=== PATIENT | female | born 1995 | race Caucasian/White ===

== ENCOUNTER 2017-03-23 10:38 | Emergency (ER) | payer OTHER ==
[2017-03-23 10:50] VITALS: BP 102/75
--- NOTE | 2017-03-23 10:59 | UC ---
Throat Pain/Nasal Levi HPI - HPI Summary HPI Summary: SORE THROAT X 1 WEEK. NO FEVER, NO CHILLS, + NASAL CONGESTION , COUGH , PND - History of Current Complaint Chief Complaint: UCRespiratory Stated Complaint: COUGH, SORE THROAT Time Seen by Provider: 03/23/17 10:53 Hx Obtained From: Patient Hx Last Menstrual Period: End February 2017 Onset/Duration: Gradual Onset, Lasting Days - 7, Still Present Severity: Moderate Cough: Nonproductive Associated Signs & Symptoms: Positive: Nasal Discharge. Negative: Wheezing, Sinus Discomfort, Fever, Rash - Allergies/Home Medications Allergies/Adverse Reactions: Allergies Allergy/AdvReac Type Severity Reaction Status Date / Time No Known Allergies Allergy Verified 03/23/17 10:45 Home Medications: Home Medications NK [No Home Medications Reported] 03/23/17 [History Confirmed 03/23/17] PMH/Surg Hx/FS Hx/Imm Hx Previously Healthy: Yes - Surgical History Surgical History: Yes Surgery Procedure, Year, and Place: Appendix - Family History Known Family History: Negative: Diabetes - Social History Alcohol Use: None Substance Use Type: None Smoking Status (MU): Never Smoked Tobacco Household Exposure Type: Cigarettes - Immunization History Most Recent Influenza Vaccination: NONE Most Recent Tetanus Shot: UNK Most Recent Pneumonia Vaccination: N/A Review of Systems Constitutional: Negative Skin: Negative Eyes: Negative ENT: Sore Throat, Nasal Discharge Respiratory: Cough Cardiovascular: Negative Gastrointestinal: Negative Genitourinary: Negative All Other Systems Reviewed And Are Negative: Yes Physical Exam Triage Information Reviewed: Yes Appearance: Well-Appearing, No Pain Distress, Well-Nourished Vital Signs: Initial Vital Signs Temp 98.2 F 03/23/17 10:45 Pulse 80 03/23/17 10:45 Resp 16 03/23/17 10:45 BP 102/75 03/23/17 10:45 Pulse Ox 100 03/23/17 10:45 Vital Signs Reviewed: Yes Eyes: Positive: Conjunctiva Clear ENT: Positive: Normal ENT inspection, Hearing grossly normal, Pharynx normal, Nasal congestion, Nasal drainage, TMs normal. Negative: Pharyngeal erythema Neck: Positive: Supple, Nontender, No Lymphadenopathy Respiratory: Positive: Chest non-tender, Lungs clear, Normal breath sounds Cardiovascular: Positive: RRR, No Murmur, Pulses Normal Abdominal Exam: Normal Neurological Exam: Normal Skin Exam: Normal Throat Pain/Nasal Course/Dx - Differential Dx/Diagnosis Provider Diagnoses: VIRAL PHARYNGITIS Discharge - Discharge Plan Condition: Stable Disposition: HOME Patient Education Materials: Pharyngitis (ED) Referrals: Nahomi Burnette [Primary Care Provider] - If Needed Additional Instructions: VIRAL ILLNESS, NO NEED FOR ANTIBIOTICS CONT. WITH REST, INCREASE FLUID, TYLENOL NEEDED FOR PAIN OR FEVER FOLLOW UP NEEDED
== END 2017-03-23 11:05 | disposition home or self-care (01) ==
LOC: UCCORT 10:38
DX: J02.9 Acute pharyngitis, unspecified (principal)
CPT/HCPCS: 99211; G0463

== ENCOUNTER 2018-01-07 16:25 | Emergency (ER) | payer OTHER ==
[2018-01-07 17:32] VITALS: BP 116/90
--- NOTE | 2018-01-07 18:55 | UC ---
UC General HPI - HPI Summary HPI Summary: pt is c/o burning with urination and odor to urine for past 1-2 weeks. hx uti's and this is the same. no fever, abdominal pain or vaginal d/c. - History of Current Complaint Chief Complaint: UCGU Stated Complaint: URINARY Time Seen by Provider: 01/07/18 18:47 Hx Obtained From: Patient Hx Last Menstrual Period: 12/12/17 Onset/Duration: Gradual Onset Timing: Constant Pain Intensity: 10 Aggravating: nothing Alleviating: nothing Associated Signs & Symptoms: Negative: Abdominal Pain, Back Pain, Fever - Allergy/Home Medications Allergies/Adverse Reactions: Allergies Allergy/AdvReac Type Severity Reaction Status Date / Time No Known Allergies Allergy Verified 01/07/18 17:22 PMH/Surg Hx/FS Hx/Imm Hx - Additional Past Medical History Additional PMH: UTI's - Surgical History Surgical History: Yes Surgery Procedure, Year, and Place: Appendix - Family History Known Family History: Negative: Diabetes - Social History Alcohol Use: None Substance Use Type: None Smoking Status (MU): Never Smoked Tobacco Household Exposure Type: Cigarettes - Immunization History Most Recent Influenza Vaccination: NONE Most Recent Tetanus Shot: UNK Most Recent Pneumonia Vaccination: N/A Vaccination Up to Date: Yes Review of Systems Constitutional: Negative Skin: Negative Eyes: Negative ENT: Negative Respiratory: Negative Cardiovascular: Negative Gastrointestinal: Negative Genitourinary: Dysuria, Frequency Motor: Negative Neurovascular: Negative Musculoskeletal: Negative Neurological: Negative Psychological: Negative Is Patient Immunocompromised?: No All Other Systems Reviewed And Are Negative: Yes Physical Exam Triage Information Reviewed: Yes Appearance: Well-Appearing Vital Signs: Initial Vital Signs Temp 98.5 F 01/07/18 17:28 Pulse 99 01/07/18 17:28 Resp 16 01/07/18 17:28 BP 116/90 01/07/18 17:28 Pulse Ox 100 01/07/18 17:28 Vital Signs Reviewed: Yes Eye Exam: Normal ENT Exam: Normal Neck: Positive: Supple, Nontender, No Lymphadenopathy Respiratory: Positive: Lungs clear, Normal breath sounds Cardiovascular: Positive: RRR, No Murmur Abdomen Description: Positive: Nontender, No Organomegaly, Soft. Negative: CVA Tenderness (R), CVA Tenderness (L), Distended, Guarding Bowel Sounds: Positive: Present Musculoskeletal: Positive: ROM Intact Neurological: Positive: Alert Psychological: Positive: Age Appropriate Behavior Skin Exam: Normal Diagnostics - Laboratory Diagnostic Studies Completed/Ordered: u/a=+ proteins, ketones, leuks and nitrites. culture is pending. Course/Dx - Course Course Of Treatment: hx, pe, u/a c/w uti - Differential Dx - Multi-Symptom Provider Diagnoses: UTI Discharge - Sign-Out/Discharge Documenting (check all that apply): Discharge - Discharge Plan Condition: Stable Disposition: HOME Prescriptions: Nitrofurantoin Macrocrystals* [Macrodantin*] 100 mg PO BID 5 Days #10 cap Patient Education Materials: Urinary Tract Infection in Women (DC) Referrals: Nahomi Burnette [Primary Care Provider] - 7 Days - Billing Disposition and Condition Condition: STABLE Disposition: HOME
== END 2018-01-07 19:17 | disposition home or self-care (01) ==
LOC: UCCORT 16:25
DX: N39.0 Urinary tract infection, site not specified (principal)
CPT/HCPCS: 81003; 87077; 87086; 87186; 99212; G0463

== ENCOUNTER 2018-05-29 09:31 | Emergency (ER) | payer OTHER ==
[2018-05-29 09:52] VITALS: BP 129/75
--- NOTE | 2018-05-29 09:55 | UC ---
Skin Complaint HPI - HPI Summary HPI Summary: 22 yo female presents with wound to right heel. She tells me that a few months ago she noticed a red spot on the back of her right heel. Has been non-healing since then. She thought it was a wart or something so she has been using OTC wart-freeze with no relief. Over the last 2 weeks has been more tender, yellow in color, larger, and bleeding a lot if "squeezed". - History of Current Complaint Chief Complaint: UCSkin Time Seen by Provider: 05/29/18 09:55 Stated Complaint: RIGHT HEEL COMPLAINT Hx Obtained From: Patient Hx Last Menstrual Period: last month Onset/Duration: Gradual Onset Skin Exposure Onset/Duration: Weeks Ago Onset Severity: Mild Current Severity: Moderate Pain Intensity: 5 Pain Scale Used: 0-10 Numeric - Allergy/Home Medications Allergies/Adverse Reactions: Allergies Allergy/AdvReac Type Severity Reaction Status Date / Time No Known Allergies Allergy Verified 05/29/18 09:53 Review of Systems Constitutional: Negative Skin: Other - Wound right heel Respiratory: Negative Cardiovascular: Negative Neurovascular: Negative Musculoskeletal: Negative Neurological: Negative Psychological: Negative All Other Systems Reviewed And Are Negative: Yes PMH/Surg Hx/FS Hx/Imm Hx - Additional Past Medical History Additional PMH: None Previously Healthy: Yes - Surgical History Surgical History: Yes Surgery Procedure, Year, and Place: Appendix 2003 [facility] - Family History Known Family History: Negative: Diabetes - Social History Occupation: Employed Full-time Lives: With Family Alcohol Use: None Substance Use Type: None Smoking Status (MU): Never Smoked Tobacco Household Exposure Type: Cigarettes - Immunization History Most Recent Influenza Vaccination: NONE Most Recent Tetanus Shot: UNK Most Recent Pneumonia Vaccination: N/A Vaccination Up to Date: Yes Physical Exam - Summary Physical Exam Summary: GENERAL: NAD. WDWN. No pain distress. SKIN: 2.0cm blister with yellow fluctuance on back of right heel. Central aspect with raised hardened ?wart vs ?callous/scar tissue. Mildly TTP. Mild warmth to surrounding tissue. No streaking, bleeding, or drainage. NECK: Supple. Nontender. No lymphadenopathy. CHEST: No accessory muscle use. Breathing comfortably and in no distress. CV: Pulses intact NEURO: Alert. CN II-XII grossly intact. PSYCH: Age appropriate behavior. Triage Information Reviewed: Yes Vital Signs: Initial Vital Signs Temp 99.1 F 05/29/18 09:41 Pulse 82 05/29/18 09:41 Resp 18 05/29/18 09:41 BP 129/75 05/29/18 09:41 Pulse Ox 100 05/29/18 09:41 Vital Signs Reviewed: Yes Course/Dx - Course Course Of Treatment: Wound infection right heel with ?wart. Rx for keflex and refer to derm for eval and possible removal - Diagnoses Provider Diagnoses: Right heel wound infection Discharge - Sign-Out/Discharge Documenting (check all that apply): Patient Departure - Discharge Plan Condition: Stable Disposition: HOME Prescriptions: Cephalexin CAP* [Keflex CAP*] 500 mg PO TID #21 cap Patient Education Materials: Wound Infection (DC) Referrals: Nahomi Burnette [Primary Care Provider] - Carlo Bailey MD [Medical Doctor] - As Soon As Possible Additional Instructions: If you develop a fever, shortness of breath, chest pain, new or worsening symptoms - please call your PCP or go to the ED. - Billing Disposition and Condition Condition: STABLE Disposition: Home
== END 2018-05-29 10:14 | disposition home or self-care (01) ==
LOC: UCCORT 09:31
DX: S91.301A Unspecified open wound, right foot, initial encounter (principal); L08.9 Local infection of the skin and subcutaneous tissue, unspecified; X58.XXXA Exposure to other specified factors, initial encounter; Y93.9 Activity, unspecified; Y92.9 Unspecified place or not applicable
CPT/HCPCS: 99212; G0463

== ENCOUNTER 2018-06-19 16:16 | Emergency (ER) | payer OTHER ==
[2018-06-19 16:37] VITALS: BP 132/81
--- NOTE | 2018-06-19 17:08 | UC ---
Complaint Female HPI - HPI Summary HPI Summary: 23-year-old female presents with 2-3 day history of dysuria, frequency, urgency , foul-smelling urine, lower abdominal pain and back pain. Denies fever, chills , nausea, vomiting, or vaginal discharge. Patient reports history of frequent UTIs. - History Of Current Complaint Chief Complaint: UCGU Stated Complaint: URINARY, UPSET STOMACH Time Seen by Provider: 06/19/18 16:56 Hx Obtained From: Patient Hx Last Menstrual Period: 06/02/18 ?: No Onset/Duration: Gradual Onset, Lasting Days Timing: Constant Severity Currently: Moderate Pain Intensity: 10 Character: Burning Aggravating Factor(s): Urination Alleviating Factor(s): Nothing Associated Signs And Symptoms: Positive: Back Pain. Negative: Fever, Vaginal Bleeding/Discharge, Nausea, Vomiting(# Of Episodes =), Genital Swelling, Genital Blisters - Allergies/Home Medications Allergies/Adverse Reactions: Allergies Allergy/AdvReac Type Severity Reaction Status Date / Time No Known Allergies Allergy Verified 05/29/18 09:53 Home Medications: Home Medications Ibuprofen 400 mg PO Q8H 06/19/18 [History Confirmed 06/19/18] PMH/Surg Hx/FS Hx/Imm Hx - Additional Past Medical History Additional PMH: Noncontributory Previously Healthy: Yes - Surgical History Surgical History: Yes Surgery Procedure, Year, and Place: Appendix [facility] - Family History Family History: Noncontributory - Social History Occupation: Employed Full-time Lives: With Family Alcohol Use: None Substance Use Type: None Smoking Status (MU): Never Smoked Tobacco Household Exposure Type: Cigarettes - Immunization History Most Recent Influenza Vaccination: NONE Most Recent Tetanus Shot: UNK Most Recent Pneumonia Vaccination: N/A Vaccination Up to Date: Yes Review of Systems Constitutional: Negative Skin: Negative Gastrointestinal: Abdominal Pain Genitourinary: Dysuria, Frequency, Urgency Is Patient Immunocompromised?: No All Other Systems Reviewed And Are Negative: Yes Physical Exam Triage Information Reviewed: Yes Appearance: Well-Appearing, No Pain Distress, Well-Nourished Vital Signs: Initial Vital Signs Temp 97.7 F 06/19/18 16:27 Pulse 99 06/19/18 16:27 Resp 16 06/19/18 16:27 BP 132/81 06/19/18 16:27 Pulse Ox 100 06/19/18 16:27 Vital Signs Reviewed: Yes Respiratory: Positive: Lungs clear, Normal breath sounds, No respiratory distress Cardiovascular: Positive: RRR, No Murmur Abdomen Description: Positive: No Organomegaly, Soft, CVA Tenderness (R), CVA Tenderness (L), Other: - Mild diffuse abdominal tenderness. Negative: Distended , Guarding Bowel Sounds: Positive: Present Neurological: Positive: Alert Skin Exam: Normal Complaint Female Dx - Course Course Of Treatment: 23-year-old female with history of frequent UTIs presents with 2-3 day history of dysuria, frequency, urgency, foul-smelling urine, lower abdominal discomfort, and back pain. Afebrile. Urinalysis shows 3+ leukocytes , 2+ blood, and 3+ protein. Urine negative. We'll treat for acute urinary cystitis with 5 day course of Bactrim DS twice daily for 5 days and Pyridium 3 times a day 2 days for discomfort. She is to schedule appointment with her primary care provider in 2 weeks for follow-up. Warning symptoms reviewed with the patient would require immediate medical attention. Verbalizes understanding and agrees with plan of care. - Differential Dx/Diagnosis Provider Diagnoses: acute urinary cystits with hematuria Discharge - Sign-Out/Discharge Documenting (check all that apply): Patient Departure All imaging exams completed and their final reports reviewed: No Studies - Discharge Plan Condition: Stable Disposition: HOME Prescriptions: Phenazopyridine TAB* [Pyridium 100 mg TAB*] 100 mg PO TID #6 tab Sulfamethox/Trimethoprim DS* [Bactrim DS 800/160 TAB*] 1 tab PO BID #10 tab Patient Education Materials: Urinary Tract Infection in Women (ED) Referrals: Nahomi Burnette [Primary Care Provider] - 2 Weeks Additional Instructions: Your urine test in the clinic today is suggestive of a urinary tract infection. We will send the urine for culture to see if any bacteria grow out and if so make sure it is sensitive to antibiotic you have been prescribed. If there is a need to change your treatment we will contact you. Start Bactrim DS 1 tab twice a day for 5 days. Be sure to complete the entire course of antibiotic even if you are feeling better. Take Pyridium 1 tab every 8 hours for next 2 days to help with the discomfort. This will medication will cause your urine to turn an orange color. Drink plenty of fluids. To help prevent urinary tract infections: 1) Stay well hydrated. 2) Be sure you wipe from front to back. 3) Urinate immediately after intercourse. Follow up with your primary care provider in 2 weeks to discuss your frequent urinary tract infections. - Billing Disposition and Condition Condition: STABLE Disposition: Home
== END 2018-06-19 17:23 | disposition home or self-care (01) ==
LOC: UCCORT 16:16
DX: N30.01 Acute cystitis with hematuria (principal); A49.8 Other bacterial infections of unspecified site
CPT/HCPCS: 81003; 84702; 87077; 87086; 87186; 99212; G0463